=== PATIENT | male | born 1960 | race African-American/Black ===

== ENCOUNTER 2017-09-27 13:14 | Emergency (ER) | payer MEDICARE ==
[2017-09-27] MEDS ORDERED: DOCUSATE SODIUM 100 MG CAPSULE RT_EAR ONE (14:50)
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
[2017-09-27 15:52] VITALS: BP 162/108
== END 2017-09-27 15:40 | disposition home or self-care (01) ==
LOC: ER 13:14
DX: H61.21 Impacted cerumen, right ear (principal); I10 Essential (primary) hypertension
CPT/HCPCS: 99282; A9270

== ENCOUNTER 2017-11-24 14:17 | Emergency (ER) | payer MEDICARE, MEDICAID ==
[2017-11-24 14:23] VITALS: BP 146/93
--- NOTE | 2017-11-24 14:55 | ER Document Report ---
ED General - General Chief Complaint: Blood Pressure Problem Stated Complaint: BLOOD PRESSURE ISSUE, STOMACH PAIN Time Seen by Provider: 11/24/17 14:48 Mode of Arrival: Ambulatory Information source: Patient Notes: 57-year-old male presents with concerns for high blood pressure abdominal pain. Patient notes that he is from [place] and notes that he is out of his medications. Patient expected to go back but has stayed longer than he had initially expected. He denies any fevers or chills admits to epigastric abdominal pain, he does admit to a headache which he attributes to his high blood pressure TRAVEL OUTSIDE OF THE [place] IN LAST 30 DAYS: No - HPI Onset: Last week Onset/Duration: Persistent Quality of pain: Burning Severity: Mild Pain Level: 1 Associated symptoms: Headache, Other Exacerbated by: Denies Relieved by: Denies Similar symptoms previously: No Recently seen / treated by doctor: No - Related Data Allergies/Adverse Reactions: No Known Allergies Allergy (Unverified 09/27/17 13:18) Past Medical History - Social History Smoking Status: Never Smoker Cigarette use (# per day): No Chew tobacco use (# tins/day): No Smoking Education Provided: No Family History: Reviewed & Not Pertinent. denies: Arthritis, CAD, COPD, CVA, DM , Hyperlipidemia, Hypertension, Malignancy, Thyroid Disfunction - Past Medical History Cardiac Medical History: Reports: Hx Hypertension Renal/ Medical History: Denies: Hx Peritoneal Dialysis GI Medical History: Reports: Hx Gastritis, Hx Gastroesophageal Reflux Disease, Hx Hiatal Hernia, Hx Ulcer, Hx Colonoscopy, Hx Endoscopy Musculoskeltal Medical History: Reports Hx Arthritis, Reports Hx Musculoskeletal Deformity, Reports Hx Musculoskeletal Trauma - Immunizations Immunizations up to date: No Review of Systems - Review of Systems Notes: REVIEW OF SYSTEMS: CONSTITUTIONAL : Denies fever, chills, or sweats. Denies recent illness. EENT: Denies eye, ear, throat, or mouth pain or symptoms. Denies nasal or sinus congestion or discharge. Denies throat, tongue, or mouth swelling or difficulty swallowing. CARDIOVASCULAR: Denies chest pain. Denies palpitations or racing or irregular heart beat. Denies ankle edema. RESPIRATORY: Denies cough, cold, or chest congestion. Denies shortness of breath, difficulty breathing, or wheezing. GASTROINTESTINAL: Epigastric abdominal pain GENITOURINARY: Denies difficulty urinating, painful urination, burning, frequency, blood in urine, or discharge. MUSCULOSKELETAL: Denies back or neck pain or stiffness. Denies joint pain or swelling. SKIN: Denies rash, lesions or sores. HEMATOLOGIC : Denies easy bruising or bleeding. LYMPHATIC: Denies swollen, enlarged glands. NEUROLOGICAL: Admits to headache PSYCHIATRIC: Denies anxiety or stress. Denies depression, suicidal ideation, or homicidal ideation. ALL OTHER SYSTEMS REVIEWED AND NEGATIVE. Dictation was performed using [employer] voice recognition software PHYSICAL EXAMINATION: GENERAL: Well-appearing, well-nourished and in no acute distress. HEAD: Atraumatic, normocephalic. EYES: Pupils equal round and reactive to light, extraocular movements intact, sclera anicteric, conjunctiva are normal. ENT: Nares patent, oropharynx clear without exudates. Moist mucous membranes. NECK: Normal range of motion, supple without lymphadenopathy LUNGS: Breath sounds clear to auscultation bilaterally and equal. No wheezes rales or rhonchi. HEART: Regular rate and rhythm without murmurs ABDOMEN: Soft, nontender, nondistended abdomen. No guarding, no rebound. No masses appreciated. Musculoskeletal: Normal range of motion, no pitting or edema. No cyanosis. NEUROLOGICAL: Cranial nerves grossly intact. Normal speech, normal gait. Normal sensory, motor exams PSYCH: Normal mood, normal affect. SKIN: Warm, Dry, normal turgor, no rashes or lesions noted. Physical Exam - Vital signs Vitals: Temp Pulse Resp BP Pulse Ox 98.2 F 63 18 146/93 H 98 11/24/17 14:19 11/24/17 14:19 11/24/17 14:19 11/24/17 14:19 11/24/17 14:19 Course - Re-evaluation Re-evalutation: 11/24/17 20:38 57-year-old male presenting with epigastric pain consistent with this chronic gastritis, patient will be refilled on his omeprazole, patient is also on 3 different blood pressure medications which I will refill for him, my physical examination was quite benign otherwise I will watch closely and discharge with medication After performing a Medical Screening Examination, I estimate there is LOW risk for INTRACRANIAL HEMORRHAGE, ISCHEMIC CVA, MALIGNANT DYSRHYTHMIA, ACUTE CORONARY SYNDROME, MENINGITIS, PULMONARY EMBOLISM, or SEPSIS thus I consider the discharge disposition reasonable. I have reevaluated this patient multiple times and no significant life threatening changes are noted. The patient and I have discussed the diagnosis and risks, and we agree with discharging home with close follow-up with the understanding that symptoms and presentations can change. We also discussed returning to the Emergency Department immediately if new or worsening symptoms occur. We have discussed the symptoms which are most concerning (e.g., changing or worsening pain, weakness, vomiting, fever) that necessitate immediate return. - Vital Signs Vital signs: Temp Pulse Resp BP Pulse Ox 98.2 F 63 18 146/93 H 98 11/24/17 14:19 11/24/17 14:19 11/24/17 14:19 11/24/17 14:19 11/24/17 14:19 Discharge - Discharge Clinical Impression: Ulcer, Medication refill Hypertension Qualifiers: Hypertension type: essential hypertension Qualified Code(s): I10 - Essential ( primary) hypertension Condition: Stable Disposition: HOME, SELF-CARE Instructions: High Blood Pressure ([facility]) Prescriptions: Hydrochlorothiazide 12.5 mg PO DAILY #60 capsule Lisinopril 20 mg PO DAILY #60 tablet Metoprolol Tartrate 50 mg PO DAILY #60 tablet Omeprazole 40 mg PO DAILY #60 capsule.dr Referrals: LEWIS NAYLOR MD [ACTIVE STAFF] - Follow up as needed
== END 2017-11-24 14:57 | disposition home or self-care (01) ==
LOC: ER 14:17
DX: L98.499 Non-pressure chronic ulcer of skin of other sites with unspecified severity (principal); R10.13 Epigastric pain; I10 Essential (primary) hypertension; R51 Headache
CPT/HCPCS: 99283

== ENCOUNTER 2018-02-12 16:56 | Emergency (ER) | payer MEDICARE, MEDICAID ==
[2018-02-12 17:04] VITALS: BP 151/88
--- NOTE | 2018-02-12 17:25 | ER Document Report ---
HPI - HPI Patient complains to provider of: Medication refill Onset: Other - 2 days Onset/Duration: Persistent Quality of pain: No pain Pain Level: Denies Context: Patient presents reporting a history of high blood pressure as well as acid reflux. Patient states that he ran out of his blood pressure medication and acid reflux medication 2 days ago. Patient denies any chest pain, headache, back pain, or urinary symptoms. Patient states that he moved to the area over 6 months ago and has been lazy and not gotten the primary care provider. Patient states he has insurance and does not have problems with obtaining his medication. Associated Symptoms: None Exacerbated by: Denies Relieved by: Denies Similar symptoms previously: Yes Recently seen / treated by doctor: No - ROS ROS below otherwise negative: Yes Systems Reviewed and Negative: Yes All other systems reviewed and negative - CONSTITUTIONAL Constitutional: DENIES: Fever - NEURO Neurology: DENIES: Headache - CARDIOVASCULAR Cardiovascular: DENIES: Chest pain - RESPIRATORY Respiratory: DENIES: Coughing - GASTROINTESTINAL Gastrointestinal: DENIES: Abdominal Pain, Nausea, Patient vomiting - MUSCULOSKELETAL Musculoskeletal: DENIES: Back Pain, Neck Pain - DERM Skin Color: Normal Skin Problems: None Past Medical History - General Information source: Patient - Social History Smoking Status: Current Every Day Smoker Smoking Education Provided: Yes Frequency of alcohol use: Occasional Drug Abuse: None Occupation: none Family History: Reviewed & Not Pertinent. denies: Arthritis, CAD, COPD, CVA, DM , Hyperlipidemia, Hypertension, Malignancy, Thyroid Disfunction - Past Medical History Cardiac Medical History: Reports: Hx Hypertension Renal/ Medical History: Denies: Hx Peritoneal Dialysis GI Medical History: Reports: Hx Gastritis, Hx Gastroesophageal Reflux Disease, Hx Hiatal Hernia, Hx Ulcer, Hx Colonoscopy, Hx Endoscopy Musculoskeltal Medical History: Reports Hx Arthritis, Reports Hx Musculoskeletal Deformity, Reports Hx Musculoskeletal Trauma Surgical Hx: Negative - Immunizations Immunizations up to date: No Vertical Provider Document - CONSTITUTIONAL Agree With Documented VS: Yes Exam Limitations: No Limitations General Appearance: WD/WN, No Apparent Distress - INFECTION CONTROL TRAVEL OUTSIDE OF THE [place] IN LAST 30 DAYS: No - HEENT HEENT: Atraumatic, Normal ENT Exam, Normocephalic - NECK Neck: Normal Inspection - RESPIRATORY Respiratory: Breath Sounds Normal, No Respiratory Distress - CARDIOVASCULAR Cardiovascular: Regular Rate, Regular Rhythm, No Murmur - GI/ABDOMEN Gastrointestinal: Abdomen Soft - MUSCULOSKELETAL/EXTREMETIES Musculoskeletal/Extremeties: ZEE WALSH - NEURO Level of Consciousness: Awake, Alert, Appropriate Motor/Sensory: No Motor Deficit - DERM Integumentary: Warm, Dry, No Rash Course - Re-evaluation Re-evalutation: 02/12/18 Patient advised of the emergency room does not refill medications. Patient advised that although the ear has done this in the past they may not continue to do this in the future and it is important that he follows up with a primary care provider for further evaluation and to manage his hypertension and reflux. - Vital Signs Vital signs: Temp Pulse Resp BP Pulse Ox 98.6 F 69 18 151/88 H 94 02/12/18 17:01 02/12/18 17:01 02/12/18 17:01 02/12/18 17:01 02/12/18 17:01 Discharge - Discharge Clinical Impression: Medication refill Hypertension Qualifiers: Hypertension type: unspecified Qualified Code(s): I10 - Essential (primary) hypertension Condition: Stable Disposition: HOME, SELF-CARE Instructions: Family Physicians / Practices, High Blood Pressure ([facility]) Additional Instructions: Return immediately for any new or worsening symptoms Followup with your primary care provider, call tomorrow to make a followup appointment The emergency department does not manage high blood pressure, it is important that you follow-up with a primary doctor to refill your medications Prescriptions: Lisinopril/Hydrochlorothiazide [Lisinopril-Hctz 20-12.5 mg Tab] 1 each PO DAILY #30 tablet Metoprolol Tartrate 50 mg PO DAILY #30 tablet Omeprazole 40 mg PO DAILY #14 capsule.dr Forms: Smoking Cessation Education Referrals: [facility] [Provider Group] - Follow up as needed LEWIS NAYLOR MD [ACTIVE STAFF] - Follow up as needed
== END 2018-02-12 17:42 | disposition home or self-care (01) ==
LOC: ER 16:56
DX: Z76.0 Encounter for issue of repeat prescription (principal); I10 Essential (primary) hypertension; K21.9 Gastro-esophageal reflux disease without esophagitis; F17.200 Nicotine dependence, unspecified, uncomplicated
CPT/HCPCS: 99281

== ENCOUNTER 2018-06-16 21:12 | Inpatient (IN) | payer MEDICARE, MEDICAID ==
--- NOTE | 2018-06-16 21:45 | ER Document Report ---
ED General - General Chief Complaint: Other Stated Complaint: HAND PAIN Time Seen by Provider: 06/16/18 21:36 Notes: Patient is a 57-year-old male that comes to the emergency department for chief complaint of cramps in his thighs and arms, he states he got in his side once, symptoms have been going on for 3 days, patient states he has been trying to drink water, he also bought and took a dose of magnesium and potassium pills. 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 He denies vomiting, chest pain, dizziness, passing out, difficulty breathing, fever. Past medical history of hypertension, PUD, GERD, medicated for these. Smokes occasionally, denies alcohol, denies recreational drugs. TRAVEL OUTSIDE OF THE [place] IN LAST 30 DAYS: No - Related Data Allergies/Adverse Reactions: No Known Allergies Allergy (Verified 06/16/18 21:30) Past Medical History - General Information source: Patient - Social History Smoking Status: Current Every Day Smoker Frequency of alcohol use: Occasional Drug Abuse: None Lives with: Family Family History: Reviewed & Not Pertinent. denies: Arthritis, CAD, COPD, CVA, DM , Hyperlipidemia, Hypertension, Malignancy, Thyroid Disfunction Patient has suicidal ideation: No Patient has homicidal ideation: No - Past Medical History Cardiac Medical History: Reports: Hx Hypertension Renal/ Medical History: Denies: Hx Peritoneal Dialysis GI Medical History: Reports: Hx Gastritis, Hx Gastroesophageal Reflux Disease, Hx Hiatal Hernia, Hx Ulcer, Hx Colonoscopy, Hx Endoscopy Musculoskeletal Medical History: Reports Hx Arthritis, Reports Hx Musculoskeletal Deformity, Reports Hx Musculoskeletal Trauma - Immunizations Immunizations up to date: No Review of Systems - Review of Systems Constitutional: No symptoms reported EENT: No symptoms reported Cardiovascular: No symptoms reported Respiratory: No symptoms reported Gastrointestinal: No symptoms reported Genitourinary: No symptoms reported Male Genitourinary: No symptoms reported Musculoskeletal: See HPI Skin: No symptoms reported Hematologic/Lymphatic: No symptoms reported Neurological/Psychological: No symptoms reported Physical Exam - Vital signs Vitals: Temp Pulse Resp BP Pulse Ox 98.8 F 97 16 159/98 H 92 06/16/18 21:26 06/16/18 21:26 06/16/18 21:26 06/16/18 21:26 06/16/18 21:26 - Notes Notes: GENERAL: Alert, interacts well. No acute distress. HEAD: Normocephalic, atraumatic. EYES: Pupils equal, round, and reactive to light. Extraocular movements intact. ENT: Oral mucosa moist, tongue midline. NECK: Full range of motion. Supple. Trachea midline. LUNGS: Clear to auscultation bilaterally, no wheezes, rales, or rhonchi. No respiratory distress. HEART: Regular rate and rhythm. No murmur ABDOMEN: Soft, non-tender. Non-distended. Bowel sounds present in all 4 quadrants. EXTREMITIES: Moves all 4 extremities spontaneously. No edema, normal radial and dorsalis pedis pulses bilaterally. No cyanosis. BACK: no cervical, thoracic, lumbar midline tenderness. No saddle anesthesia, normal distal neurovascular exam. NEUROLOGICAL: Alert and oriented x3. Normal speech. [cranial nerves II through XII grossly intact]. PSYCH: Normal affect, normal mood. SKIN: Warm, dry, normal turgor. No rashes or lesions noted. Course - Re-evaluation Re-evalutation: Physical examination unremarkable, vital signs unremarkable. Patient reporting some pain in his thighs and arms but he states it is not as bad as before. He states his legs still buckle under him occasionally. CBC unremarkable. Chemistry shows creatinine of 2.33 with GFR of 35. CK almost 2500. Urinalysis with positive blood on dipstick but not in the urine suggestive of myoglobin. Concern for rhabdomyolysis with acute renal failure. I asked patient about his kidney functioning, he states he has had this checked and was told it was normal. No previous studies here. Given 2 IV fluid boluses. Because of acute renal failure with rhabdomyolysis discussed with patient, will discuss with hospitalist for admission. Discussed with Dr. Saucedo. Discussed with Dr. Vail, hospitalist, patient will be admitted to medical floor full admission. - Vital Signs Vital signs: Temp Pulse Resp BP Pulse Ox 98.1 F 86 20 138/86 H 93 06/17/18 01:39 06/17/18 01:39 06/17/18 01:39 06/17/18 01:39 06/17/18 01:39 - Laboratory Result Diagrams: 06/16/18 21:53 06/16/18 21:53 Laboratory results interpreted by me: 06/16/18 06/16/18 06/16/18 21:50 21:53 21:53 RDW 15.4 H BUN 35 H Creatinine 2.33 H Est GFR ( Amer) 35 L Est GFR (Non-Af Amer) 29 L Magnesium 2.7 H Creatine Kinase 2490 H Urine Protein 30 H Urine Ketones TRACE H Urine Blood SMALL H Urine Urobilinogen 4.0 H Urine Ascorbic Acid 40 H 06/16/18 23:40 RDW BUN Creatinine Est GFR ( Amer) Est GFR (Non-Af Amer) Magnesium Creatine Kinase 2113 H Urine Protein Urine Ketones Urine Blood Urine Urobilinogen Urine Ascorbic Acid Discharge - Discharge Clinical Impression: Rhabdomyolysis Qualifiers: Rhabdomyolysis type: non-traumatic Qualified Code(s): M62.82 - Rhabdomyolysis Acute renal failure Qualifiers: Acute renal failure type: unspecified Qualified Code(s): N17.9 - Acute kidney failure, unspecified Condition: Stable Disposition: ADMITTED INPATIENT Admitting Provider: Hospitalist Unit Admitted: Medical Floor
[2018-06-16 22:10] LABS: ABSOLUTE BASOPHILS # (AUTO) 0.1 10^3/uL (0.0-0.2); ABSOLUTE EOSINOPHILS # (AUTO) 0.1 10^3/uL (0.0-0.6); ABSOLUTE LYMPHOCYTES (AUTO) 2.8 10^3/uL (0.5-4.7); ABSOLUTE MONOCYTES (AUTO) 1.1 10^3/uL (0.1-1.4); ABSOLUTE NEUT (AUTO) 4.6 10^3/uL (1.7-8.2); BASOPHILS % (AUTO) 0.8 % (0-2); EOSINOPHILS % (AUTO) 1.5 % (0-6); HEMOGLOBIN 16.5 g/dL (13.5-17.0); LYMPHOCYTES % (AUTO) 32.3 % (13-45); MEAN CORPUSCULAR HEMOGLOBIN 30.9 pg (27.0-33.4); MEAN CORPUSCULAR HGB CONC 34.4 g/dL (32.0-36.0); MEAN CORPUSCULAR VOLUME 90 fl (80-97); MONOCYTES % (AUTO) 12.7 % (3-13); PLATELET COUNT 305 10^3/uL (150-450); RED BLOOD COUNT 5.36 10^6/uL (4.35-5.55); RED CELL DISTRIBUTION WIDTH 15.4 % (11.5-14.0); SEGMENTED NEUTROPHILS % (AUTO) 52.7 % (42-78); TOTAL CELLS COUNTED % (AUTO) 100 %; WHITE BLOOD COUNT 8.8 10^3/uL (4.0-10.5)
[2018-06-16 22:19] LABS: APPEARANCE,URINE SLIGHTLY-CLOUDY; BILIRUBIN,URINE NEGATIVE (NEGATIVE); COLOR,URINE YELLOW; GLUCOSE, URINE NEGATIVE (NEGATIVE); KETONES,URINE TRACE mg/dL (NEGATIVE); LEUKOCYTE ESTERASE,URINE NEGATIVE (NEGATIVE); NITRITE,URINE NEGATIVE (NEGATIVE); PROTEIN,URINE 30 mg/dL (NEGATIVE); URINE SPECIFIC GRAVITY 1.028
[2018-06-16] MEDS ORDERED: NORMAL SALINE 1000 ML 1,000 ML IV ONE ×2 (22:20→22:43)
[2018-06-16 22:30] LABS: ANION GAP 13 (5-19); BLOOD UREA NITROGEN 35 mg/dL (7-20); CALCIUM 10.1 mg/dL (8.4-10.2); CARBON DIOXIDE 27 mmol/L (22-30); CHLORIDE 99 mmol/L (98-107); GLUCOSE 105 mg/dL (75-110); SODIUM 138.9 mmol/L (137-145)
[2018-06-16 22:40] LABS: CREATINE KINASE 2490 U/L (55-170)
[2018-06-16] MEDS ORDERED: OXYCODONE-ACETAMINOPHEN 5-325 MG TABLET PO PRN (23:23)
[2018-06-16] MEDS ORDERED: ONDANSETRON HCL INJ/PF 4 MG/2 ML SDV IV PRN (23:23)
[2018-06-17] MEDS: NORMAL SALINE 1000 ML 1,000 ML IV PRN ×3 (00:55→18:48)
[2018-06-17 06:02] LABS: ANION GAP 7 (5-19); BLOOD UREA NITROGEN 24 mg/dL (7-20); CARBON DIOXIDE 21 mmol/L (22-30); CHLORIDE 111 mmol/L (98-107); GLUCOSE 93 mg/dL (75-110); POTASSIUM 4.1 mmol/L (3.6-5.0)
[2018-06-17 06:09] LABS: CREATINE KINASE 2039 U/L (55-170)
[2018-06-17] MEDS: HEPARIN SOD (PORCINE) 5,000 UNIT/ML 1 ML SYRINGE SUBCUT SCH ×3 (06:12→22:00)
--- NOTE | 2018-06-17 06:59 | PDOC H&P ---
History of Present Illness Admission Date/PCP: 06/16/18 23:49 Patient complains of: muscle cramps History of Present Illness: AUGUST ROMO is a 57 year old male presenting to the emergency department secondary to muscle cramps. 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 States he would feel stiff with basic minimal exertion and even at rest at times. Cramping is appreciated in the back of his thighs. Denies CP, SOB, MALONE, BV. Past Medical History Cardiac Medical History: Reports: Hypertension GI Medical History: Reports: Gastroesophageal Reflux Disease, Hiatal Hernia Musculoskeltal Medical History: Reports: Arthritis Social History Information Source: Patient Lives with: Family Smoking Status: Current Every Day Smoker Last Time Smoked: 06/17/18 Frequency of Alcohol Use: Rare Hx Recreational Drug Use: No Drugs: None Hx Prescription Drug Abuse: No - Advance Directive Resuscitation Status: Full Code Family History Family History: Reviewed & Not Pertinent. denies: Arthritis, CAD, COPD, CVA, DM , Hyperlipidemia, Hypertension, Malignancy, Thyroid Disfunction Parental Family History Reviewed: No Children Family History Reviewed: No Sibling(s) Family History Reviewed.: No Medication/Allergy Home Medications: Hydrochlorothiazide 12.5 mg PO DAILY #60 capsule 11/24/17 Lisinopril 20 mg PO DAILY #60 tablet 11/24/17 Metoprolol Tartrate 50 mg PO DAILY #60 tablet 11/24/17 Omeprazole 40 mg PO DAILY #60 capsule. 11/24/17 Lisinopril/Hydrochlorothiazide [Lisinopril-Hctz 20-12.5 mg Tab] 1 each PO DAILY #30 tablet 02/12/18 Metoprolol Tartrate 50 mg PO DAILY #30 tablet 02/12/18 Omeprazole 40 mg PO DAILY #14 capsule. 02/12/18 Allergies/Adverse Reactions: No Known Allergies Allergy (Verified 06/16/18 21:30) Review of Systems Constitutional: ABSENT: chills, fever(s), headache(s), weight gain, weight loss Cardiovascular: ABSENT: chest pain, dyspnea on exertion, edema, orthropnea, palpitations Respiratory: ABSENT: cough, hemoptysis Gastrointestinal: ABSENT: abdominal pain, constipation, diarrhea, hematemesis, hematochezia, nausea, vomiting Musculoskeletal: PRESENT: other - muscle cramping Neurological: ABSENT: abnormal gait, abnormal speech, confusion, dizziness, focal weakness, syncope Physical Exam Vital Signs: Temp Pulse Resp BP Pulse Ox 98.1 F 71 18 124/82 96 06/17/18 01:39 06/17/18 04:00 06/17/18 04:00 06/17/18 04:00 06/17/18 04:00 Intake & Output 06/15/18 06/16/18 06/17/18 06:59 06:59 06:59 Intake Total 217 Balance 217 Weight 80.8 kg General appearance: PRESENT: no acute distress, well-developed, well-nourished Head exam: PRESENT: atraumatic, normocephalic Eye exam: PRESENT: conjunctiva pink, EOMI, PERRLA. ABSENT: scleral icterus Ear exam: PRESENT: normal external ear exam Mouth exam: PRESENT: moist, tongue midline Neck exam: ABSENT: carotid bruit, JVD, lymphadenopathy, thyromegaly Respiratory exam: PRESENT: clear to auscultation dinesh. ABSENT: rales, rhonchi, wheezes Cardiovascular exam: PRESENT: RRR. ABSENT: diastolic murmur, rubs, systolic murmur Pulses: PRESENT: normal dorsalis pedis pul Vascular exam: PRESENT: normal capillary refill GI/Abdominal exam: PRESENT: normal bowel sounds, soft. ABSENT: distended, guarding, mass, organolmegaly, rebound, tenderness Rectal exam: PRESENT: deferred Extremities exam: PRESENT: full ROM. ABSENT: calf tenderness, clubbing, pedal edema Neurological exam: PRESENT: alert, awake, oriented to person, oriented to place , oriented to time, oriented to situation, CN II-XII grossly intact. ABSENT: motor sensory deficit Psychiatric exam: PRESENT: appropriate affect, normal mood. ABSENT: homicidal ideation, suicidal ideation Skin exam: PRESENT: dry, intact, warm. ABSENT: cyanosis, rash Results Laboratory Results: 06/17/18 05:43 06/17/18 05:43 Sodium 139.0 Potassium 4.1 Chloride 111 H Carbon Dioxide 21 L Anion Gap 7 BUN 24 H Creatinine 1.45 H Est GFR ( Amer) > 60 Est GFR (Non-Af Amer) 50 L Glucose 93 Calcium 8.0 L 06/17/18 05:43 Creatine Kinase 9 H Assessment & Plan - Diagnosis (1) Rhabdomyolysis Qualifiers: Rhabdomyolysis type: non-traumatic Qualified Code(s): M62.82 - Rhabdomyolysis Is this a current diagnosis for this admission?: Yes (2) Acute renal failure Qualifiers: Acute renal failure type: unspecified Qualified Code(s): N17.9 - Acute kidney failure, unspecified Is this a current diagnosis for this admission?: Yes - Time Time Spent: 30 to 50 Minutes Medications reviewed and adjusted accordingly: Yes Anticipated discharge: Home - Inpatient Certification Medical Necessity: Need For IV Fluids - Plan Summary Plan Summary: Patient to be admitted to [facility] for further monitoring and inpatient evaluation. CK elevated at 2500. Repeat CK this a.m. along with repeat CBC, BMP. Will avoid nephrotoxic medications given elevated creatinine at 2.33. Patient denies history of underlying kidney disease. Will hold patient's home medications of lisinopril which she takes for hypertension. Maintain 1.5 maintenance IV fluids overnight. Smoking cessation highly encouraged. Consider nephro consult if no improvement. We will continue to monitor closely and adjust accordingly.
--- NOTE | 2018-06-17 10:06 | PDOC PROGRESS REPORT ---
Subjective Progress Note for:: 06/17/18 Subjective:: Mr. Billy russo is 57-year-old male with past medical history of hypertension, GERD, hiatal hernia, and arthritis who presented to ED complaining of muscle cramps. 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 Found to have an elevated CK and creatinine of 2.33. Patient's lisinopril was held and he was started on IV fluids. Reason For Visit: RHABDO Physical Exam Vital Signs: Temp Pulse Resp BP Pulse Ox 98.0 F 69 16 135/82 H 97 06/17/18 07:23 06/17/18 07:23 06/17/18 07:23 06/17/18 07:23 06/17/18 07:23 Intake & Output 06/16/18 06/17/18 06/18/18 06:59 06:59 06:59 Intake Total 217 1000 Balance 217 1000 Weight 80.8 kg Results Laboratory Results: 06/17/18 05:43 06/17/18 05:43 Sodium 139.0 Potassium 4.1 Chloride 111 H Carbon Dioxide 21 L Anion Gap 7 BUN 24 H Creatinine 1.45 H Est GFR ( Amer) > 60 Est GFR (Non-Af Amer) 50 L Glucose 93 Calcium 8.0 L 06/17/18 05:43 Creatine Kinase 2039 H Assessment & Plan - Diagnosis (1) Rhabdomyolysis Qualifiers: Rhabdomyolysis type: non-traumatic Qualified Code(s): M62.82 - Rhabdomyolysis Is this a current diagnosis for this admission?: Yes Plan: Continue aggressive hydration and pain management. CK tomorrow a.m. (2) Tobacco abuse Is this a current diagnosis for this admission?: No Plan: Patient was counseled on quitting smoking. (3) Acute renal failure Qualifiers: Acute renal failure type: unspecified Qualified Code(s): N17.9 - Acute kidney failure, unspecified Is this a current diagnosis for this admission?: Yes Plan: Most likely due to recent rhabdomyolysis. Aggressive hydration. Creatinine improving. Hold lisinopril. Monitor electrolytes. CMP tomorrow. Outpatient nephrology follow-up.
[2018-06-18] MEDS: HEPARIN SOD (PORCINE) 5,000 UNIT/ML 1 ML SYRINGE SUBCUT SCH (06:04)
[2018-06-18 06:51] LABS: ABSOLUTE EOSINOPHILS # (AUTO) 0.3 10^3/uL (0.0-0.6); ABSOLUTE LYMPHOCYTES (AUTO) 2.6 10^3/uL (0.5-4.7); ABSOLUTE MONOCYTES (AUTO) 0.7 10^3/uL (0.1-1.4); ABSOLUTE NEUT (AUTO) 1.6 10^3/uL (1.7-8.2); BASOPHILS % (AUTO) 0.9 % (0-2); HEMATOCRIT 41.8 % (37.9-51.0); MEAN CORPUSCULAR HEMOGLOBIN 30.9 pg (27.0-33.4); MEAN CORPUSCULAR HGB CONC 33.9 g/dL (32.0-36.0); MEAN CORPUSCULAR VOLUME 91 fl (80-97); MONOCYTES % (AUTO) 13.7 % (3-13); PLATELET COUNT 211 10^3/uL (150-450); RED BLOOD COUNT 4.59 10^6/uL (4.35-5.55); SEGMENTED NEUTROPHILS % (AUTO) 30.4 % (42-78); TOTAL CELLS COUNTED % (AUTO) 100 %; WHITE BLOOD COUNT 5.3 10^3/uL (4.0-10.5)
[2018-06-18 06:53] LABS: HEMOGLOBIN 14.2 g/dL (13.5-17.0)
[2018-06-18 07:08] LABS: ALANINE AMINOTRANSFERASE 38 U/L (21-72); ALBUMIN 3.2 g/dL (3.5-5.0); ALKALINE PHOSPHATASE 58 U/L (38-126); ANION GAP 8 (5-19); ASPARTATE AMINO TRANSFERASE 42 U/L (17-59); BILIRUBIN,DIRECT 0.2 mg/dL (0.0-0.4); BILIRUBIN,TOTAL 0.6 mg/dL (0.2-1.3); BLOOD UREA NITROGEN 16 mg/dL (7-20); CALCIUM 8.5 mg/dL (8.4-10.2); CARBON DIOXIDE 22 mmol/L (22-30); CHLORIDE 111 mmol/L (98-107); CREATINE KINASE 1207 U/L (55-170); GLUCOSE 83 mg/dL (75-110); POTASSIUM 5.2 mmol/L (3.6-5.0); SODIUM 140.7 mmol/L (137-145); TOTAL PROTEIN 6.1 g/dL (6.3-8.2)
--- NOTE | 2018-06-18 10:16 | PDOC DISCHARGE SUMMARY ---
General - Admit/Disc Date/PCP Admission Date/Primary Care Provider: 06/16/18 23:49 - Discharge Diagnosis (1) Rhabdomyolysis Is this a current diagnosis for this admission?: Yes (2) Tobacco abuse Is this a current diagnosis for this admission?: No (3) Acute renal failure Is this a current diagnosis for this admission?: Yes (4) Hypertension Is this a current diagnosis for this admission?: Yes Summary: Euvolemic. Blood pressure has been running between 130s and 140s. Patient used to take lisinopril however not compliant. Hold lisinopril due to recent MARQUIS and start on low-dose amlodipine. Patient encouraged to follow-up with PCP for his medication consideration. - Additional Information Resuscitation Status: Full Code Home Medications: Lisinopril/Hydrochlorothiazide [Zestoretic 20-12.5 mg Tablet] 40 mg PO DAILY 12/30 Metoprolol Succinate [Toprol Xl 25 mg Tab.sr] 25 mg PO DAILY 06/17/18 Omeprazole 40 mg PO DAILY 06/17/18 History of Present Illness Patient complains of: Muscle cramps History of Present Illness: AUGUST ROMO is a 57 year old male with past medical history of Hypertension, GERD, hiatal hernia, and arthritis who presented to ED complaining of muscle cramps. 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 Found to have an elevated CK and creatinine of 2.33. Patient's lisinopril was held and he was started on IV fluids. Hospital Course Hospital Course: (1) Rhabdomyolysis Patient received aggressive hydration and supportive measures for his pain. CK 1207 today (2) Tobacco abuse Patient was counseled on quitting smoking. (3) Acute renal failure Most likely due to recent rhabdomyolysis. Improved. Creatinine within normal limits. Outpatient nephrology follow-up. (4) Hypertension Euvolemic. Blood pressure has been running between 130s and 140s. Patient used to take lisinopril however not compliant. Hold lisinopril due to recent MARQUIS and start on low-dose amlodipine. Patient encouraged to follow-up with PCP for his medication adjustment Physical Exam Vital Signs: Temp Pulse Resp BP Pulse Ox 98.2 F 62 17 141/92 H 99 06/18/18 07:48 06/18/18 07:48 06/18/18 07:48 06/18/18 07:48 06/18/18 07:48 Intake & Output 06/17/18 06/18/18 06/19/18 06:59 06:59 06:59 Intake Total 217 2962 Balance 217 2962 Weight 80.8 kg 80.8 kg General appearance: PRESENT: no acute distress, well-developed, well-nourished Head exam: PRESENT: atraumatic, normocephalic Eye exam: PRESENT: conjunctiva pink, EOMI, PERRLA. ABSENT: scleral icterus Ear exam: PRESENT: normal external ear exam Mouth exam: PRESENT: moist, tongue midline Neck exam: ABSENT: carotid bruit, JVD, lymphadenopathy, thyromegaly Respiratory exam: PRESENT: clear to auscultation dinesh. ABSENT: rales, rhonchi, wheezes Cardiovascular exam: PRESENT: RRR. ABSENT: diastolic murmur, rubs, systolic murmur Pulses: PRESENT: normal dorsalis pedis pul Vascular exam: PRESENT: normal capillary refill GI/Abdominal exam: PRESENT: normal bowel sounds, soft. ABSENT: distended, guarding, mass, organolmegaly, rebound, tenderness Rectal exam: PRESENT: deferred Extremities exam: PRESENT: full ROM. ABSENT: calf tenderness, clubbing, pedal edema Neurological exam: PRESENT: alert, awake, oriented to person, oriented to place , oriented to time, oriented to situation, CN II-XII grossly intact. ABSENT: motor sensory deficit Psychiatric exam: PRESENT: appropriate affect, normal mood. ABSENT: homicidal ideation, suicidal ideation Skin exam: PRESENT: dry, intact, warm. ABSENT: cyanosis, rash Results Laboratory Results: 06/18/18 05:44 06/18/18 06/18/18 05:44 05:44 WBC 5.3 RBC 4.59 Hgb 14.2 D Hct 41.8 MCV 91 MCH 30.9 MCHC 33.9 RDW 15.0 H Plt Count 211 Seg Neutrophils % 30.4 L Lymphocytes % 49.0 H Monocytes % 13.7 H Eosinophils % 6.0 Basophils % 0.9 Absolute Neutrophils 1.6 L Absolute Lymphocytes 2.6 Absolute Monocytes 0.7 Absolute Eosinophils 0.3 Absolute Basophils 0.0 Sodium 140.7 Potassium 5.2 H Chloride 111 H Carbon Dioxide 22 Anion Gap 8 BUN 16 Creatinine 1.14 Est GFR ( Amer) > 60 Est GFR (Non-Af Amer) > 60 Glucose 83 Calcium 8.5 Total Bilirubin 0.6 AST 42 ALT 38 Alkaline Phosphatase 58 Total Protein 6.1 L Albumin 3.2 L 06/17/18 06/17/18 06/18/18 05:43 11:57 05:44 Creatine Kinase 2039 H 1597 H 1207 H
[2018-06-18 10:28] LABS: ANION GAP 6 (5-19); BLOOD UREA NITROGEN 13 mg/dL (7-20); CALCIUM 8.4 mg/dL (8.4-10.2); CARBON DIOXIDE 25 mmol/L (22-30); CHLORIDE 109 mmol/L (98-107); GLUCOSE 109 mg/dL (75-110); POTASSIUM 4.6 mmol/L (3.6-5.0); SODIUM 139.8 mmol/L (137-145)
[2018-06-18] MEDS ORDERED: AMLODIPINE BESYLATE 5 MG TABLET PO SCH (11:00)
[2018-06-18 11:19] VITALS: BP 124/82
== END 2018-06-18 12:25 | disposition home or self-care (01) | DRG 558 ==
LOC: ER 21:12 → EH 23:49 → 4S 06-17 01:30
PROVIDERS: ADMIT Family Medicine; ATTEND Family Medicine
DX: M62.82 Rhabdomyolysis (principal); N17.9 Acute kidney failure, unspecified; I10 Essential (primary) hypertension; K21.9 Gastro-esophageal reflux disease without esophagitis; M19.90 Unspecified osteoarthritis, unspecified site; K44.9 Diaphragmatic hernia without obstruction or gangrene; F17.210 Nicotine dependence, cigarettes, uncomplicated; Z79.899 Other long term (current) drug therapy
CPT/HCPCS: 36415; 80048; 80053; 81001; 82550; 83735; 85025; 96360; 99284; J1644; J7030